=== PATIENT | female | born 2000 | race Caucasian/White ===

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

== ENCOUNTER 2019-10-25 14:20 | Emergency (ER) | payer BC, OTHER ==
[2019-10-25 15:08] LABS: ANION GAP 12.6 mmol/L (10-20); CHLORIDE,CL 103 mmol/L (98-107); SODIUM,NA 140 mmol/L (136-145)
[2019-10-25 15:35] VITALS: BP 128/64; PULSE 79
--- NOTE | 2019-10-26 23:21 | EDM.PDOC ---
ED HPI GENERAL MEDICAL PROBLEM - General Chief Complaint: Abdominal Pain Stated Complaint: STOMACH PAIN DIARRHEA Time Seen by Provider: 10/25/19 14:40 Source of Information: Reports: Patient History Limitations: Reports: No Limitations - History of Present Illness INITIAL COMMENTS - FREE TEXT/NARRATIVE: Pt. presents to ER with complaints of several day history of L sided abdominal pain, nausea, and diarrhea. Pt. denies any ill contacts. No fever or chills. Pt. states that the discomfort is intermittent in nature. She states that her diarrhea has improved somewhat. Last loose stool was 10/23. She is still concerned that she is still having the discomfort. Denies any bloody stools. No melena. Denies any chest pain. No shortness of breath. She complains of headache and body aches. She states that she was scheduled to have a covid 19 test today. Onset Date: 10/23/19 Location: Reports: Abdomen, Generalized Quality: Reports: Ache Associated Symptoms: Reports: Nausea/Vomiting, Weakness Left Abdomen Pain Score (Numeric/FACES): 4 - Related Data Allergies Allergy/AdvReac Type Severity Reaction Status Date / Time No Known Allergies Allergy Verified 10/25/19 14:35 Home Meds: Home Meds FLUoxetine [PROzac] 40 mg PO DAILY 10/25/19 [History] traZODone HCl [Trazodone HCl] 50 mg PO BEDTIME 10/25/19 [History] Past Medical History Psychiatric History: Reports: Anxiety, Depression Social & Family History - Tobacco Use Smoking Status *Q: Never Smoker - Recreational Drug Use Recreational Drug Use: No ED ROS GENERAL - Review of Systems Review Of Systems: See Below Constitutional: Reports: No Symptoms HEENT: Reports: No Symptoms Respiratory: Reports: No Symptoms Cardiovascular: Reports: No Symptoms Endocrine: Reports: No Symptoms GI/Abdominal: Reports: Abdominal Pain, Diarrhea, Nausea, Vomiting : Reports: No Symptoms Musculoskeletal: Reports: No Symptoms Skin: Reports: No Symptoms Neurological: Reports: No Symptoms Psychiatric: Reports: No Symptoms Hematologic/Lymphatic: Reports: No Symptoms Immunologic: Reports: No Symptoms ED EXAM, GENERAL - Physical Exam Exam: See Below Exam Limited By: No Limitations General Appearance: Alert, WD/WN, No Apparent Distress Eye Exam: Bilateral Eye: EOMI, Normal Fundi, Normal Inspection, PERRL Nose: Normal Inspection, Normal Mucosa, No Blood Throat/Mouth: Normal Inspection, Normal Lips, Normal Teeth, Normal Gums, Normal Oropharynx, Normal Voice, No Airway Compromise Head: Atraumatic, Normocephalic Neck: Normal Inspection, Supple, Non-Tender, Full Range of Motion Respiratory/Chest: No Respiratory Distress, Lungs Clear, Normal Breath Sounds, No Accessory Muscle Use, Chest Non-Tender Cardiovascular: Normal Peripheral Pulses, Regular Rate, Rhythm, No Edema, No JVD, No Murmur Peripheral Pulses: 4+: Radial (L) GI/Abdominal: Soft, No Organomegaly, No Distention, No Mass, Tender (diffusely tender L side of abdomen) (Female) Exam: Deferred Rectal (Female) Exam: Deferred Back Exam: Normal Inspection, Full Range of Motion Extremities: Normal Inspection, Normal Range of Motion, Non-Tender, No Pedal Edema, Normal Capillary Refill Neurological: Alert, Oriented, CN II-XII Intact, Normal Cognition, Normal Gait, Normal Reflexes, No Motor/Sensory Deficits Psychiatric: Normal Affect, Normal Mood Skin Exam: Warm, Dry, Intact, Normal Color, No Rash Course - Vital Signs Last Recorded V/S: Last Vital Signs Temp 36.4 C 10/25/19 14:20 Pulse 79 10/25/19 14:20 Resp 16 10/25/19 14:20 BP 128/64 10/25/19 14:20 Pulse Ox 98 10/25/19 14:20 - Orders/Labs/Meds Labs: Laboratory Tests 10/25/19 10/25/19 10/25/19 Range/Units 14:50 14:50 14:50 WBC 7.4 (4.0-10.0) x10^3/uL RBC 5.03 (4.00-5.50) x10^6/uL Hgb 14.3 (12.0-16.0) g/dL Hct 43.7 (33.0-47.0) % MCV 86.9 (78.0-93.0) fL MCH 28.4 (26.0-32.0) pg MCHC 32.7 (32.0-36.0) g/dL RDW Coeff of Cecy 13.7 (10.0-15.0) % Plt Count 274 (130-400) x10^3/uL Neut % (Auto) 58.5 (50.0-80.0) % Lymph % (Auto) 32.7 (25.0-50.0) % [place] % (Auto) 6.6 (2.0-11.0) % Eos % (Auto) 1.9 (0.0-4.0) % Baso % (Auto) 0.3 (0.2-1.2) % PT 10.2 (9.5-12.3) SEC INR 0.9 L (2.0-3.5) Sodium 140 (136-145) mmol/L Potassium 3.6 (3.5-5.1) mmol/L Chloride 103 (98-107) mmol/L Carbon Dioxide 28 (21-32) mmol/L Anion Gap 12.6 (10-20) mmol/L BUN 12 (7-18) mg/dL Creatinine 1.0 (0.55-1.02) mg/dL Est Cr Clr Drug Dosing TNP Estimated GFR (MDRD) > 60 Glucose 103 (74-106) mg/dL Calcium 8.8 (8.5-10.1) mg/dL Corrected Calcium 8.96 (8.5-10.1) mg/dL Total Bilirubin 0.4 (0.2-1.0) mg/dL AST 29 (15-37) U/L ALT 54 (14-59) U/L Alkaline Phosphatase 67 (46-116) U/L C-Reactive Protein 0.7 (<=0.9) mg/dL Total Protein 7.5 (6.4-8.2) g/dL Albumin 3.8 (3.4-5.0) g/dL Globulin 3.7 Albumin/Globulin Ratio 1.03 Urine Color (YELLOW) Urine Appearance (CLEAR) Urine pH (5.0-8.0) Ur Specific [place] Urine Protein (NEGATIVE) mg/dL Urine Glucose (UA) (NEGATIVE) mg/dL Urine Ketones (NEGATIVE) mg/dL Urine Occult Blood (NEGATIVE) Urine Nitrite (NEGATIVE) Urine Bilirubin (NEGATIVE) Urine Urobilinogen (0.2) EU/dL Ur Leukocyte Esterase (NEGATIVE) Urine RBC (NOT SEEN) /HPF Urine WBC (NOT SEEN) /HPF Ur Squamous Epith Cells (NEGATIVE) /HPF Urine Bacteria (NEGATIVE) /HPF Urine Mucus (NEGATIVE) /LPF Urine HCG, Qual (NEGATIVE) COVID-19 (SUDARSHAN) (NEGATIVE) 10/25/19 10/25/19 10/25/19 Range/Units 15:05 15:05 15:47 WBC (4.0-10.0) x10^3/uL RBC (4.00-5.50) x10^6/uL Hgb (12.0-16.0) g/dL Hct (33.0-47.0) % MCV (78.0-93.0) fL MCH (26.0-32.0) pg MCHC (32.0-36.0) g/dL RDW Coeff of Cecy (10.0-15.0) % Plt Count (130-400) x10^3/uL Neut % (Auto) (50.0-80.0) % Lymph % (Auto) (25.0-50.0) % [place] % (Auto) (2.0-11.0) % Eos % (Auto) (0.0-4.0) % Baso % (Auto) (0.2-1.2) % PT (9.5-12.3) SEC INR (2.0-3.5) Sodium (136-145) mmol/L Potassium (3.5-5.1) mmol/L Chloride (98-107) mmol/L Carbon Dioxide (21-32) mmol/L Anion Gap (10-20) mmol/L BUN (7-18) mg/dL Creatinine (0.55-1.02) mg/dL Est Cr Clr Drug Dosing Estimated GFR (MDRD) Glucose (74-106) mg/dL Calcium (8.5-10.1) mg/dL Corrected Calcium (8.5-10.1) mg/dL Total Bilirubin (0.2-1.0) mg/dL AST (15-37) U/L ALT (14-59) U/L Alkaline Phosphatase (46-116) U/L C-Reactive Protein (<=0.9) mg/dL Total Protein (6.4-8.2) g/dL Albumin (3.4-5.0) g/dL Globulin Albumin/Globulin Ratio Urine Color Yellow (YELLOW) Urine Appearance Slightly cloudy H (CLEAR) Urine pH 6.0 (5.0-8.0) Ur Specific [place] 1.025 Urine Protein Negative (NEGATIVE) mg/dL Urine Glucose (UA) Negative (NEGATIVE) mg/dL Urine Ketones Negative (NEGATIVE) mg/dL Urine Occult Blood Negative (NEGATIVE) Urine Nitrite Negative (NEGATIVE) Urine Bilirubin Negative (NEGATIVE) Urine Urobilinogen 0.2 (0.2) EU/dL Ur Leukocyte Esterase Trace H (NEGATIVE) Urine RBC 0-5 (NOT SEEN) /HPF Urine WBC 5-10 H (NOT SEEN) /HPF Ur Squamous Epith Cells Many H (NEGATIVE) /HPF Urine Bacteria Few H (NEGATIVE) /HPF Urine Mucus Rare H (NEGATIVE) /LPF Urine HCG, Qual Negative (NEGATIVE) COVID-19 (SUDARSHAN) Negative (NEGATIVE) Departure - Departure Time of Disposition: 16:00 Disposition: Home, Self-Care 01 Clinical Impression: Gastroenteritis, UTI (urinary tract infection) - Discharge Information Instructions: Urinary Tract Infection, Adult, Sulfamethoxazole; Trimethoprim, SMX-TMP tablets, Probiotics, Viral Gastroenteritis, Adult Referrals: Sharonda Corea MD [Primary Care Provider] - Forms: ED Department Discharge Additional Instructions: bactrim DS 1 twice daily for 7 days tylenol as needed for fever/discomfort Drink plenty of fluids Immodium for continued diarrhea. This can be obtained over the counter. Recheck in clinic in 7-10 days Sepsis Event Note (ED) - Evaluation Sepsis Screening Result: No Definite Risk - Problem List Review Problem List Initiated/Reviewed/Updated: Yes - Assessment/Plan Plan: bactrim DS 1 twice daily for 7 days tylenol as needed for fever/discomfort Drink plenty of fluids Immodium for continued diarrhea. This can be obtained over the counter. Recheck in clinic in 7-10 days
== END 2019-10-25 16:15 | disposition home or self-care (01) ==
LOC: VM.ED 14:20 → MERGE 14:20 → VM.ED 16:15
DX: K52.9 Noninfective gastroenteritis and colitis, unspecified (principal); N39.0 Urinary tract infection, site not specified; F41.9 Anxiety disorder, unspecified; F32.9 Major depressive disorder, single episode, unspecified; Z79.899 Other long term (current) drug therapy; Z20.828 Contact with and (suspected) exposure to other viral communicable diseases
CPT/HCPCS: 36415; 80053; 81001; 81025; 85025; 85610; 86140; 87086; 99283-GF; 99284; U0002

== ENCOUNTER 2021-06-10 21:16 | Emergency (ER) | payer OTHER, BC ==
[2021-06-10 23:00] VITALS: BP 119/78; PULSE 84
== END 2021-06-10 23:33 | disposition home or self-care (01) ==
LOC: VM.ED 21:16
DX: G56.21 Lesion of ulnar nerve, right upper limb (principal)
CPT/HCPCS: 73110-RT; 99283; 99284

== ENCOUNTER 2021-07-22 21:22 | Emergency (ER) | payer BC, OTHER ==
[2021-07-22] MEDS ORDERED: Sodium Chloride 0.9% 10 ML Syringe FLUSH PRN (21:37)
[2021-07-22 22:19] LABS: CHLORIDE,CL 101 mmol/L (98-107); SODIUM,NA 136 mmol/L (136-145)
[2021-07-22 22:22] LABS: ANION GAP 15.7 mmol/L (5-15)
[2021-07-22 22:34] VITALS: BP 109/52; PULSE 77
== END 2021-07-22 23:35 | disposition home or self-care (01) ==
LOC: VM.ED 21:22
DX: R07.89 Other chest pain (principal); R07.2 Precordial pain; E83.42 Hypomagnesemia
CPT/HCPCS: 71045; 80053; 83735; 83880; 84100; 84443; 84484; 85025; 85379; 86140; 93005; 93010; 99284; 99285-25

== ENCOUNTER 2021-07-29 09:58 | Emergency (ER) | payer BC ==
[2021-07-29 10:31] VITALS: BP 119/71; PULSE 94
[2021-07-29 11:32] LABS: CHLORIDE,CL 104 mmol/L (98-107); SODIUM,NA 141 mmol/L (136-145)
[2021-07-29 11:33] LABS: ANION GAP 15.6 mmol/L (5-15)
[2021-07-29] MEDS ORDERED: Aspirin 81 MG Tab.Chew PO ONE (11:46)
== END 2021-07-29 12:05 | disposition home or self-care (01) ==
LOC: VM.ED 09:58
DX: I82.612 Acute embolism and thrombosis of superficial veins of left upper extremity (principal); Z91.011 Allergy to milk products; Z91.048 Other nonmedicinal substance allergy status
CPT/HCPCS: 36415; 71045; 80053; 85025; 85379; 93971-LT; 99284; 99284-25; A9270-GY

== ENCOUNTER 2024-12-20 08:04 | Emergency (ER) | payer OTHER ==
[2024-12-20 08:16] VITALS: BP 106/57; PULSE 99
== END 2024-12-20 09:18 | disposition home or self-care (01) ==
LOC: VM.ED 08:04
DX: T63.461A Toxic effect of venom of wasps, accidental (unintentional), initial encounter (principal); Z91.018 Allergy to other foods; Z91.014 Allergy to mammalian meats; Z79.899 Other long term (current) drug therapy
CPT/HCPCS: 99283; A9270-GY